=== PATIENT | female | born 1930 | race African-American/Black ===

== ENCOUNTER 2019-07-10 11:03 | Emergency (ER) | payer MEDICARE, MEDICAID ==
[~2019-07-10] VITALS: Ht 162.6 cm; Wt 48.0 kg
[2019-07-10 11:50] VITALS: BP 131/67
== END 2019-07-10 13:10 | disposition home or self-care (01) ==
LOC: ER 11:19
DX: N81.10 Cystocele, unspecified (principal); I10 Essential (primary) hypertension; J45.909 Unspecified asthma, uncomplicated; Z86.73 Personal history of transient ischemic attack (TIA), and cerebral infarction without residual deficits; Z88.2 Allergy status to sulfonamides
CPT/HCPCS: 99283